=== PATIENT | female | born 1980 | race Caucasian/White ===

== ENCOUNTER 2020-09-07 23:16 | Emergency (ER) | payer OTHER, MEDICAID ==
[~2020-09-07] VITALS: Ht 167.6 cm; Wt 99.8 kg
--- NOTE | 2020-09-07 23:16 | NUR ---
PT [facility] BLS. TAKEN TO BED 8
[2020-09-07 23:21] VITALS: BP 122/76
--- NOTE | 2020-09-08 00:12 | NUR ---
ED MD at bedside for eval.
--- NOTE | 2020-09-08 00:29 | NUR ---
RCD at bedside for ABG
--- NOTE | 2020-09-08 00:52 | NUR ---
X-Ray at bedside.
--- NOTE | 2020-09-08 01:23 | NUR ---
Dr. Talamantes examining patient.
[2020-09-08] MEDS ORDERED: LORazepam 1 MG TAB PO ONE (01:25)
[2020-09-08 01:49] VITALS: BP 120/65
--- NOTE | 2020-09-08 01:49 | NUR ---
ACI given to pt with verbal understanding. Pt ambulated off unit with steady gait and all belongs
== END 2020-09-08 01:49 | disposition home or self-care (01) ==
LOC: MED 23:16
DX: R06.4 Hyperventilation (principal); F41.0 Panic disorder [episodic paroxysmal anxiety]; R03.0 Elevated blood-pressure reading, without diagnosis of hypertension
CPT/HCPCS: 36600; 71045; 82803; 99285